=== PATIENT | female | born 1970 | race Caucasian/White ===

== ENCOUNTER 2023-07-08 04:07 | Emergency (ER) | payer MEDICAID ==
[~2023-07-08] VITALS: Ht 167.6 cm; Wt 88.6 kg
[~2023-07-08 04:07] MED LIST: BUPR150T22; LEVO50TA67 PO
[2023-07-08 04:38] VITALS: BP 173/116; PULSE 73; RESP 18; TEMP 98.3; O2SAT 97
[2023-07-08] MEDS ORDERED: POLY119P2 PO (05:12)
[2023-07-08] MEDS ORDERED: LIDO30CR TOP (05:12)
[2023-07-08] MEDS ORDERED: HYDR30CR79 TOP (05:12)
== END 2023-07-08 05:22 | disposition home or self-care (01) ==
LOC: ER 04:08
DX: K64.9 Unspecified hemorrhoids (principal); I10 Essential (primary) hypertension; F31.9 Bipolar disorder, unspecified; Z88.8 Allergy status to other drugs, medicaments and biological substances; Z79.899 Other long term (current) drug therapy; Z90.710 Acquired absence of both cervix and uterus
CPT/HCPCS: 99283

== ENCOUNTER 2024-05-26 04:50 | Emergency (ER) | payer MEDICAID ==
[~2024-05-26] VITALS: Ht 167.6 cm; Wt 81.7 kg
[~2024-05-26 04:50] MED LIST changes: +HYDR30CR79 TOP; +LIDO30CR TOP; +POLY119P2 PO
[2024-05-26 04:52] VITALS: TEMP 97.7
[2024-05-26] MEDS: naproxen 500mg tablet PO ONE (05:52)
[2024-05-26 06:07] VITALS: BP 143/98; PULSE 91; RESP 16; O2SAT 95
== END 2024-05-26 06:19 | disposition home or self-care (01) ==
LOC: ER 04:50
DX: S93.402A Sprain of unspecified ligament of left ankle, initial encounter (principal); S90.32XA Contusion of left foot, initial encounter; I10 Essential (primary) hypertension; F31.9 Bipolar disorder, unspecified; Z90.710 Acquired absence of both cervix and uterus; Z79.899 Other long term (current) drug therapy; W10.9XXA Fall (on) (from) unspecified stairs and steps, initial encounter; Y93.89 Activity, other specified; Y92.89 Other specified places as the place of occurrence of the external cause; Y99.8 Other external cause status
CPT/HCPCS: 73610; 73630; 99284; A6449; L4360

== ENCOUNTER 2024-05-27 02:08 | Emergency (ER) | payer MEDICAID ==
[~2024-05-27] VITALS: Ht 167.6 cm; Wt 85.1 kg
[2024-05-27 02:41] LABS: BASOPHILS % (AUTO) 0.4 % (0-1); EOSINOPHILS # (AUTO) 0.1 X10'3 (0-0.9); EOSINOPHILS % (AUTO) 3.1 % (0-6); HEMATOCRIT 42.6 % (35.0-45.0); HEMOGLOBIN 14.3 g/dl (12.0-16.0); LYMPHOCYTES # (AUTO) 1.2 X10'3 (1.1-4.8); LYMPHOCYTES % (AUTO) 25.4 % (21-51); MEAN CORPUSCULAR HEMOGLOBIN 35.8 PG (27.0-31.0); MEAN CORPUSCULAR HGB CONC 33.5 g/dL (33.0-36.5); MEAN CORPUSCULAR VOLUME 106.6 FL (78-98); MEAN PLATELET VOLUME 7.9 FL (7.4-10.4); MONOCYTES # (AUTO) 0.5 X10'3 (0-0.9); MONOCYTES % (AUTO) 10.4 % (2-12); NEUTROPHILS # (AUTO) 2.8 X10'3 (1.8-7.7); NEUTROPHILS % (AUTO) 60.7 % (42-75); PLATELET COUNT 214 X10'3 (140-440); RED CELL DISTRIBUTION WIDTH 13.9 % (11.5-14.5); WHITE BLOOD COUNT 4.6 X10'3 (4.5-11.0)
[2024-05-27 02:56] LABS: ALANINE AMINOTRANSFERASE 128 U/L (12-78); ALBUMIN 3.9 G/DL (3.4-5.0); ALBUMIN/GLOBULIN RATIO 1.2 (1.1-1.5); ALKALINE PHOSPHATASE 65 IU/L (46-116); ANION GAP 14 (8-16); ASPARTATE AMINO TRANSFERASE 124 U/L (10-37); BILIRUBIN,TOTAL 0.8 MG/DL (0.1-1.0); BLOOD UREA NITROGEN 21 MG/DL (7-18); CALCIUM 9.5 MG/DL (8.5-10.1); CHLORIDE 101 MMOL/L (99-107); CREATININE 0.84 MG/DL (0.40-0.90); GLUCOSE 95 MG/DL (70-104); POTASSIUM 3.8 MMOL/L (3.5-5.1); SODIUM 138 MMOL/L (135-145); TOTAL CARBON DIOXIDE 23.4 MMOL/L (24-32); TOTAL PROTEIN 7.2 G/DL (6.4-8.2); eCRCL 73 ML/MIN; eGFR 71 ML/MIN
[2024-05-27 03:07] LABS: ETHANOL 15 MG/DL (<10); PRO BRAIN NATRIURETIC PEPTIDE 158 PG/ML (0-125)
[2024-05-27] MEDS ORDERED: iohexol 350MG/ML 100ml bottle IV ONE (06:04)
[2024-05-27] MEDS: meclizine 12.5mg tablet PO ONE (06:40)
[2024-05-27] MEDS: ketorolac trometh 15mg/ml vial 15 MG/ML ML IV ONE (07:52)
[2024-05-27 13:32] LABS: URINE AMPHETAMINE SCREEN NEGATIVE (Neg); URINE BARBITUATE SCREEN NEGATIVE (Neg); URINE BENZODIAZEPINES SCREEN NEGATIVE (Neg); URINE CANNABINOID SCREEN POSITIVE (Neg); URINE COCAINE SCREEN NEGATIVE (Neg); URINE METHADONE SCREEN NEGATIVE (Neg); URINE OPIATE SCREEN NEGATIVE (Neg); URINE PHENCYCLIDINE SCREEN NEGATIVE (Neg)
[2024-05-27] MEDS: LORazepam 2 mg/ml vial IV ONE (15:19)
[2024-05-27 15:59] VITALS: TEMP 98.3
[2024-05-27] MEDS: acetaminophen 325mg tablet PO ONE (17:03)
[2024-05-27 18:14] VITALS: BP 138/89; PULSE 92; RESP 15; O2SAT 97
== END 2024-05-27 18:12 | disposition home or self-care (01) ==
LOC: ER 02:09
DX: R42 Dizziness and giddiness (principal); I10 Essential (primary) hypertension; G89.29 Other chronic pain; M54.9 Dorsalgia, unspecified; F31.9 Bipolar disorder, unspecified; E07.9 Disorder of thyroid, unspecified; Z90.710 Acquired absence of both cervix and uterus; Z98.890 Other specified postprocedural states; Z79.899 Other long term (current) drug therapy
CPT/HCPCS: 36415; 70450; 70496; 70498; 70551; 71045; 80053; 80305; 80320; 83880; 84484; 85025; 93005; 96374; 96375; 99285; J1885; J2060; J8597; Q9967

== ENCOUNTER 2025-03-19 07:09 | Emergency (ER) | payer MEDICAID ==
[~2025-03-19] VITALS: Ht 167.6 cm; Wt 82.0 kg
--- NOTE | 2025-03-19 07:47 | Physician Documentation ---
History of Present Illness ~ Chief Complaint: Neck pain Stated Complaint: FALL/NECK PAIN Time Seen by MD: 07:42 Primary Medical Doctor: Ирина Wilkins [facility] This is a very pleasant 54-year-old female who presents for evaluation of lower neck pain after she tripped over her dog and fell several days ago. Pain is worse with range of motion. Palliated with the position of comfort. She attempted to treat it with the meloxicam and Tylenol without success. This never happened in the past. She reports that it is difficult to drive. She gets occasional pins and needle sensation in her left upper extremity. Denies loss of consciousness. Denies head strike. No headache. No focal neurologic deficits when inquired in plain Micronesian. Denies any other symptoms. No concern for tobacco, alcohol or illicit substances use. Medication Reconciliation Allergies: Coded Allergies: No Known Drug Allergies (Verified Allergy, Unknown, 05/27/24) Uncoded Allergies: "OPIATES I AM ADDICTED" (Adverse Reaction, Intermediate, 03/19/12) Scheduled Bupropion HCl (Bupropion Xl), 150 MG DAILY, (Reported) Hydrocortisone (Anusol-Hc), 1 APPLIC TOP Q8H Levothyroxine Sodium* (Levoxyl*), 50 MCG PO DAILY, (Reported) Levothyroxine Sodium* (Levoxyl*), 50 MCG PO DAILY Lidocaine/Prilocaine (Lidocaine-Prilocaine Cream), 1 APPLIC TOP UD Polyethylene Glycol 3350 (Miralax), 17 GM PO DAILY Past Medical History Past Medical History: Hypertension, Hepatitis C, Thyroid (unspecified), Chronic Back Pain, Bipolar Past Surgical History: hysterectomy, orthopedic surgeries Alcohol Use: None Drug Use: none Lives with: Spouse Lives In: Home Review of Systems ROS 10 point review of systems was performed and unless noted above in HPI is negative for acute process/complaint. Physical Exam Vital Signs: Temperature: 97.5, Source: Temporal, Heart Rate: 105, Respiratory Rate: 18, BP: 159/124, Pulse Oximetry: 97, Weight: 81.950 Physical Exam GENERAL: Awake, alert, oriented, GCS 15, no apparent distress, non-toxic appearing, answers questions, follows commands appropriately. HEENT: Atraumatic, normocephalic, pupils equal, extraocular muscles intact, sclerae anicteric, mucus membranes moist, oropharynx is clear, no stridor. NECK: supple, range of motion is limited by pain, trachea midline, no thyromegaly, no lymphadenopathy, no JVD. CARDIOVASCULAR: regular rate/rhythm, no murmurs/gallops/rubs, Pulses are 2+ in all extremities and symmetric. Capillary refill less than 2 seconds. PULMONARY: Nonlabored, good air movement ,no respiratory distress, speaking in full sentences, clear to auscultation bilaterally, no wheezing, no ronchi, no rales, no accessory muscle use. GASTROINTESTINAL: Soft, non-tender, non-distended, normal active bowel sounds, no organomegaly, no pulsatile masses, no CVA tenderness. NEUROLOGIC: Lucid with normal mental status. Normal facial symmetry. Moves all extremities symmetrically and with purpose. No truncal ataxia. Speech is fluid without evidence of dysarthria or aphasia, no focal deficits appreciated. MUSCULOSKELETAL: There is full range of motion of all extremities. There is no joint pain or joint swelling or joint erythema. There is no muscle pain or tenderness or swelling. EXTREMITIES: warm, well-perfused, no cyanosis, no clubbing, no edema, no acute deformities. Skin: warm, dry, no rashes or lesions, no jaundice, no petechiae orpurpura. No ecchymosis. PSYCHIATRIC: Normal affect, normal insight, normal concentration. Focused exam: [] Midline tenderness to palpation over C5 through C7. No step- offs. No crepitus. No bruising. Progress Results/Orders Results/Orders Orders - MICHELLE CHACON DO Ct Cervical Spine (03/19/25 08:05) Completed Orders - MICHELLE CHACON DO Ct Cervical Spine (03/19/25 08:05) Tramadol Tablet (Ultram Tablet) (03/19/25 07:45) Medications Received in ER Medications (Trade) Dose Ordered Sig/Tony Route PRN Reason Start Time Stop Time Status Last Admin Dose Admin (Ultram tablet) 50 mg ONCE ONCE PO 03/19/25 07:45 03/19/25 07:46 DC 03/19/25 07:48 50 MG Vital Signs 03/19/25 03/19/25 03/19/25 03/19/25 07:10 07:48 07:53 08:10 Temp 97.5 Pulse 105 94 Resp 18 18 18 18 B/P (MAP) 159/124 171/118 (135) Pulse Ox 97 96 O2 Flow Rate 0 Medical Decision Making Findings Facility Status: ED Holds, RME process The plan was discussed with the patient, who demonstrates clear understanding of the plan and is in agreement with the plan unless otherwise noted in the chart. All questions have been answered, all concerns were addressed unless otherwise documented. I was available throughout their ED stay for frequent reassessment and questions. Differential Diagnoses (considered and possible or likely): [Muscle spasm, torticollis, somewhat less likely cervical spine fracture or subluxation, radiculopathy] ??Differential Diagnoses (considered and unlikely, not requiring evaluation currently): [No evidence of traumatic cord injury at this time] MDM Data Please see [facility] for the following: Independent Historians and external Records Review. Historian: [Patient] Independent Historians: ?[Record review] Medication Management: [Reviewed medication list] Social History and determinants: [Reviewed] Please see the body of the note for the following: Any independent interpretations of ECG, imaging studies. All vitals signs/haemodynamics, ordered tests were independently reviewed and interpreted by myself. Nursing triage complaint and vitals reviewed, additional nursing notes were reviewed as available and I agree unless otherwise noted or documented in contradiction in the chart Vital Signs: Independently reviewed Labs: Independently interpreted Imaging: Independently interpreted Old Medical Records: Independently reviewed, see [facility] for relevant summary and information Additionally notably showing: [Hemodynamically stable. CT shows no fracture or subluxation, multilevel DJD.] Tests considered but not ordered include: [Hematologic workup has been considered but does not appear to be necessary given mechanical nature of the injury. MRI can be done on an outpatient basis] Social Determinants of Health Impact: Patient was evaluated in [facility], or [facility] [place] with limited access to healthcare due to below par ratio of patient to medical providers. [] Comorbid Conditions Impacting Present Evaluation and Care/Treatment: [None reported by the patient] Management Discussions with other Healthcare Providers: [None] Treatment and Disposition Medication Management (Given or considered): [Pain management]. See EMR for details Consideration for Hospitalization/Escalation/Deescalation of Care: Admission for observation has been considered, [however the patient is able to tolerate p.o., their symptoms are controlled, they are able to rely on oral medications, and their chief complaint/diagnosis can be managed on outpatient basis.] ?ED Course:?[Pain improved] ?Shared decision making:?[Patient is hemodynamically stable for discharge home with follow with their primary care provider. [ ] Specific and cautious return precautions provided and discussed with full understanding. Any incidental find ings were also discussed and follow up recommendations given. [] All questions answered. Patient/family were able to verbalize back return precautions. Patient/family agree to plan. Copies of imaging and laboratory studies were provided.] Code status:?FULL Please see the full Electronic Medical Record for full details of nursing documentation, medications list, other records of complete past medical history and conditions, vital signs, laboratory studies, and any radiologic study interpretations by radiologists. Portions of this note were completed using [employer] dictation software and as a result there may exist minor errors in sp elling. I have reviewed elements of past family and social history and agree as included in note. Departure Disposition: HOME / SELF CARE / HOMELESS Impression: Primary Impression: Neck pain Condition: Improved Discharge Instructions: Cervical Radiculopathy, Cervical Sprain Additional Instructions: Please follow-up with your primary care provider. You will need MRI given the evidence of degenerative disc disease. Referrals: NO PRIMARY CARE PROVIDER (PCP) Prescriptions Diclofenac Sodium (Voltaren Arthritis Pain) 1 % Gel..gram. 2 GM TOP BID PRN for pain for 10 Days, #100 GM Prov: MICHELLE CHACON DO 03/19/25 Lidocaine (Lidoderm) 5 % Adh..patch 1 PATCH TOP DAILY PRN for pain for 30 Days, #30 PATCH 0 Refills may wear up to 12 hours Prov: MICHELLE CHACON DO 03/19/25 Cyclobenzaprine HCl (Cyclobenzaprine HCl) 5 Mg Tablet 1 TAB PO TID PRN PRN for muscle spasms for 10 Days, #30 TAB 0 Refills Prov: MICHELLE CHACON DO 03/19/25 Naproxen (Naproxen) 500 Mg Tablet 1 TAB PO Q12H, #20 TAB Prov: MICHELLE CHACNO DO 03/19/25 Education Educated: Patient Educated regarding: diagnosis, treatment, prognosis, need for follow up Signature Scribe Signature: No scribe Attestation: This note accurately reflects clinical decisions, work performed by myself, DO INES Hartley NICHOLAS M DO Mar 19, 2025 07:47
[2025-03-19 08:10] VITALS: BP 171/118; PULSE 94; RESP 18; O2SAT 96
--- NOTE | 2025-03-19 08:30 | RADIOLOGY REPORT ---
EXAM: CT CT CERVICAL SPINE INDICATION: fall, lower neck pain EXAM DATE: 03/19/2025 07:59 AM COMPARISON: None TECHNIQUE: Multiple axial CT images of the cervical spine were obtained using bone algorithm. Sagitta l and coronal reformatting was done. Bone and soft tissue windows were reviewed. Radiation Dose Information: CT Dose: CTDI volume is 20.9 mGy. Dose-length product is 452.0 mGy*cm FINDINGS: The cervical alignment is intact. Reversal of the cervical lordosis. There are degenerative changes a t the craniocervical junction, with mild degenerative subluxation. Degenerative changes with osteoph ytes and narrowing at C1-C2. No acute cervical spine fracture is identified. The vertebral body heigh ts are intact. No suspicious osseous lesions are identified. There is an interbody prosthesis at C3-C4. Multilevel intervertebral disc space narrowing most pronou nced at C6-C7. Mild spinal stenosis at C6-C7 due to posterior osteophytes/disc osteophyte complex. Mi ld bilateral neural foraminal stenosis at C6-C7. Multilevel facet arthropathy. There is no prevertebral soft tissue swelling. Lung apices are clear. IMPRESSION: 1. No evidence of acute cervical spine fracture or traumatic malalignment. 2. Multilevel degenerative changes. All CT scans at this medical facility are performed using dose modulation techniques as appropriate t o a performed exam including the following: Automated exposure control was utilized; adjustment of th e MA and/or KV according to patient size; and use of iterative reconstruction technique.
[2025-03-19] MEDS ORDERED: NAPR-56 PO (09:05)
[2025-03-19] MEDS ORDERED: LIDO-52 TOP (09:05)
[2025-03-19] MEDS ORDERED: DICL20GE TOP (09:05)
[2025-03-19] MEDS ORDERED: CYCL-920 PO (09:05)
[2025-03-19 09:36] VITALS: TEMP 97.5
== END 2025-03-19 09:37 | disposition home or self-care (01) ==
LOC: ER 07:09
DX: M54.2 Cervicalgia (principal); I10 Essential (primary) hypertension; F31.9 Bipolar disorder, unspecified; Z90.710 Acquired absence of both cervix and uterus; Z79.899 Other long term (current) drug therapy
CPT/HCPCS: 72125; 99284

== ENCOUNTER 2025-05-20 05:03 | Emergency (ER) | payer MEDICAID ==
[~2025-05-20] VITALS: Ht 167.6 cm; Wt 81.0 kg
[~2025-05-20 05:03] MED LIST changes: +CYCL-920 PO; +DICL20GE TOP; +LIDO-52 TOP
--- NOTE | 2025-05-20 05:23 | Physician Documentation ---
History of Present Illness ~ Chief Complaint: Foot pain Stated Complaint: RIGHT FOOT SWELLING Time Seen by MD: 05:22 Primary Medical Doctor: Ирина Wilkins [facility] Patient presents to the emergency room for evaluation of right great toe pain of sudden onset yesterday. No traumas or falls. No prior instances no fevers. Tetanus witin 5 years: Yes Medication Reconciliation Allergies: Coded Allergies: No Known Drug Allergies (Verified Allergy, Unknown, 05/27/24) Uncoded Allergies: "OPIATES I AM ADDICTED" (Adverse Reaction, Intermediate, 03/19/12) Scheduled Bupropion HCl (Bupropion Xl), 150 MG DAILY, (Reported) Hydrocortisone (Anusol-Hc), 1 APPLIC TOP Q8H Levothyroxine Sodium* (Levoxyl*), 50 MCG PO DAILY, (Reported) Levothyroxine Sodium* (Levoxyl*), 50 MCG PO DAILY Lidocaine/Prilocaine (Lidocaine-Prilocaine Cream), 1 APPLIC TOP UD Polyethylene Glycol 3350 (Miralax), 17 GM PO DAILY Scheduled PRN Cyclobenzaprine HCl (Cyclobenzaprine HCl), 1 TAB PO TID PRN PRN for muscle spasms Diclofenac Sodium (Voltaren Arthritis Pain), 2 GM TOP BID PRN for pain Lidocaine (Lidoderm), 1 PATCH TOP DAILY PRN for pain Past Medical History Past Medical History: Hypertension, Hepatitis C, Thyroid (unspecified), Chronic Back Pain, Bipolar Past Surgical History: hysterectomy, orthopedic surgeries Alcohol Use: None Drug Use: none Lives with: Spouse Lives In: Home Review of Systems ROS All review of systems negative except as per [facility] Physical Exam Vital Signs: Temperature: 98.0, Heart Rate: 115, Respiratory Rate: 16, BP: 175/117, Pulse Oximetry: 98, Weight: 81.000 Physical Exam General: Patient is awake, alert, oriented x4 in no acute distress Head: Normocephalic and atraumatic. Eyes: Conjunctival normal. EOMI. PERRL. ENT: Mucous membranes moist. Neck: Supple, trachea is midline. Chest: Clear to auscultation bilaterally without rales, rhonchi, or wheezes. There is no accessory muscle use or retractions. Cardiac: RRR without murmurs, gallops, or rubs. Abd: Soft, nondistended, nontender, with normoactive bowel sounds. No guarding, rebound, or rigidity. Extremities: Right great toe inflamed and very sensitive to light touch Progress Results/Orders Results/Orders Vital Signs 05/20/25 05:17 Temp 98.0 Pulse 115 Resp 16 B/P (MAP) 175/117 Pulse Ox 98 Medical Decision Making Findings Patient presents to the emergency room with a red hot joint of her right great toe. She endorses that even a bed sheet over it hurts. Differentials include but are not limited to cellulitis, gout, fracture, foreign body. Given history and physical exam symptoms are consistent with classic gout. Treatment initiated. I do not feel patient requires imaging and although considered I do not feel patient is suffering from cellulitis. Departure Disposition: HOME / SELF CARE / HOMELESS Impression: Primary Impression: Gout attack Condition: Stable Discharge Instructions: Gout Referrals: NO PRIMARY CARE PROVIDER (PCP) Prescriptions Tramadol HCl (Tramadol HCl) 50 Mg Tablet 1 TAB PO Q6H PRN PRN for pain, #10 TAB Prov: YE LOJA MD 05/20/25 Colchicine (Colcrys) 0.6 Mg Tablet 1 TAB PO Q6H for gout pain, #6 TAB 0 Refills Prov: YE LOJA MD 05/20/25 Prednisone* (Prednisone*) 20 Mg Tablet 1 TAB PO DAILY for 5 Days, #5 TAB Prov: YE LOJA MD 05/20/25 Education Educated: Patient Educated regarding: diagnosis, treatment, need for follow up Signature Scribe Signature: No scribe Attestation: The note accurately reflects work and decisions made by me.Ye Loja MD 05/20/25 05:39 YE LOJA MD May 20, 2025 05:23
[2025-05-20] MEDS ORDERED: PRED20TA PO (05:39)
[2025-05-20] MEDS ORDERED: TRAM50TA2 PO (05:39)
[2025-05-20] MEDS ORDERED: COL0.6T PO (05:39)
[2025-05-20] MEDS: triamcinolone acetonide 40mg/ml inj IM ONE (05:46)
[2025-05-20] MEDS: ketorolac trometh 15mg/ml vial 15 MG/ML ML IM ONE (05:46)
[2025-05-20 05:57] VITALS: BP 164/120; PULSE 124; RESP 20; TEMP 98; O2SAT 98
== END 2025-05-20 06:04 | disposition home or self-care (01) ==
LOC: ER 05:04
DX: M10.9 Gout, unspecified (principal); I10 Essential (primary) hypertension; F31.9 Bipolar disorder, unspecified; G89.29 Other chronic pain; Z90.710 Acquired absence of both cervix and uterus; Z79.899 Other long term (current) drug therapy
CPT/HCPCS: 96372; 99284; J1885; J3301

== ENCOUNTER 2025-05-24 03:53 | Emergency (ER) | payer MEDICAID ==
[~2025-05-24 03:53] MED LIST changes: +COL0.6T PO; +PRED20TA PO; +TRAM50TA2 PO
[2025-05-24 03:59] VITALS: BP 184/112; PULSE 99; RESP 20; TEMP 97; O2SAT 97
[2025-05-24] MEDS: sulfamethoxazole/trimethoprim DS (800/160mg) tablet PO ONE (04:10)
[2025-05-24] MEDS ORDERED: SULF1TAB49 PO (04:11)
--- NOTE | 2025-05-24 04:11 | Physician Documentation ---
History of Present Illness General Chief Complaint: Edema Stated Complaint: INFECTED WOUND Time Seen by MD: 04:07 Primary Medical Doctor: [facility] Mode of Arrival: POV History of Present Illness Initial Comments This is a 54-year-old female who recently received an intramuscular injection in her left buttock presents for evaluation of redness, pain, burning sensation in the buttock that has been present for several days. No palliating or aggravat ing factors. This never happened in the past. She has a known history of diabetes, but it it is very well-controlled. Denies any fever or chills. Denies any other symptoms. Medication Reconciliation Allergies: Coded Allergies: No Known Drug Allergies (Verified Allergy, Unknown, 05/27/24) Uncoded Allergies: "OPIATES I AM ADDICTED" (Adverse Reaction, Intermediate, 03/19/12) Scheduled Bupropion HCl (Bupropion Xl), 150 MG DAILY, (Reported) Colchicine (Colcrys), 1 TAB PO Q6H Hydrocortisone (Anusol-Hc), 1 APPLIC TOP Q8H Levothyroxine Sodium* (Levoxyl*), 50 MCG PO DAILY, (Reported) Levothyroxine Sodium* (Levoxyl*), 50 MCG PO DAILY Lidocaine/Prilocaine (Lidocaine-Prilocaine Cream), 1 APPLIC TOP UD Polyethylene Glycol 3350 (Miralax), 17 GM PO DAILY Prednisone* (Prednisone*), 1 TAB PO DAILY Scheduled PRN Cyclobenzaprine HCl (Cyclobenzaprine HCl), 1 TAB PO TID PRN PRN for muscle spasms Diclofenac Sodium (Voltaren Arthritis Pain), 2 GM TOP BID PRN for pain Lidocaine (Lidoderm), 1 PATCH TOP DAILY PRN for pain Tramadol HCl (Tramadol HCl), 1 TAB PO Q6H PRN PRN for pain Past Medical History Past Medical History: Hypertension, Hepatitis C, Thyroid (unspecified), Chronic Back Pain, Bipolar Past Surgical History: hysterectomy, orthopedic surgeries Smoking: Non-Smoker Alcohol Use: None Drug Use: none Lives with: Spouse Lives In: Home Review of Systems ROS 10 point review of systems was performed and unless noted above in HPI is negative for acute process/complaint. Physical Exam Physical Exam Vital Signs: Temperature: 97.0, Heart Rate: 99, Respiratory Rate: 20, BP: 184/112, Pulse Oximetry: 97 Oxygen Flow Rate: 0 Physical Exam Physical examination: GENERAL: Awake, alert, oriented, GCS 15, no apparent distress, non-toxic appearing, answers questions, follows commands appropriately. HEENT: Atraumatic, normocephalic, pupils equal, extraocular muscles intact Active gross movements, sclerae anicteric, mucus membranes moist, no stridor. NECK: Midline, no JVD CARDIOVASCULAR: Good skin perfusion without evidence of pallor, mottling. PULMONARY: Nonlabored, symmetric chest rise, no audible wheezing, no accessory muscle use, no respiratory distress, speaking in full sentences. GASTROINTESTINAL: Not distended. NEUROLOGIC: Lucid with normal mental status. Normal facial symmetry. Moves all extremities symmetrically and with purpose. No truncal ataxia. Speech is fluid without evidence of dysarthria or aphasia, no focal deficits appreciated. EXTREMITIES: Acute deformities Skin: warm, dry PSYCHIATRIC: Normal affect, normal insight, normal concentration. Focused exam: There is a proximally 20 cm area of erythema, calor, with a smaller central area of induration without fluctuance on her left buttock. It is tender to palpation reproducing chief complaint. No crepitus. No violaceous changes. Progress Results/Orders Results/Orders Orders - MICHELLE CHACON DO Sulfamethox/Trimetho. Ds Tab (Septra Ds (05/24/25 04:10) Vital Signs 05/24/25 03:59 Temp 97.0 Pulse 99 Resp 20 B/P (MAP) 184/112 Pulse Ox 97 O2 Flow Rate 0 Medical Decision Making Findings Facility Status: ED Holds, [facility] process The plan was discussed with the patient, who demonstrates clear understanding of the plan and is in agreement with the plan unless otherwise noted in the chart. All questions have been answered, all concerns were addressed unless otherwise documented. I was available throughout their ED stay for frequent reassessment and questions. Differential Diagnoses (considered and possible or likely): [Iatrogenic cellulitis of left buttock, less likely abscess, less likely necrotizing infection.] ??Differential Diagnoses (considered and unlikely, not requiring evaluation currently): [See above] MDM Data Please see HPI for the following: Independent Historians and external Records Review. Historian: [Patient] Independent Historians: ?[Record review] Medication Management: [Reviewed medication list] Social History and determinants: [Reviewed] Please see the body of the note for the following: Any independent interpretations of ECG, imaging studies. All vitals signs/haemodynamics, ordered tests were independently reviewed and interpreted by myself. Nursing triage complaint and vitals reviewed, additional nursing notes were reviewed as available and I agree unless otherwise noted or documented in contradiction in the chart Vital Signs: Independently reviewed Labs: Independently interpreted Imaging: Independently interpreted Old Medical Records: Independently reviewed, see HPI for relevant summary and information Pulse Oximetry: [97%] interpreted as [normal on room air] by me Additionally notably showing: [Hemodynamically stable] Tests considered but not ordered include: [Hematologic workup and imaging has been considered but does not appear to be necessary given clinical nature of diagnosis] Social Determinants of Health Impact: Patient was evaluated in [facility], [facility] [place] community with limited access to healthcare due to below par ratio of patient to medical providers. [] Comorbid Conditions Impacting Present Evaluation and Care/Treatment: [Diabetes] Management Discussions with other Healthcare Providers: [None] Treatment and Disposition Medication Management (Given or considered): [Initial antibiotics]. See EMR for details Consideration for Hospitalization/Escalation/Deescalation of Care: Admission for observation has been considered, [however the patient is able to tolerate p.o., their symptoms are controlled, they are able to rely on oral medications, and their chief complaint/diagnosis can be managed on outpatient basis.] ?ED Course:?[No clinical deterioration] ?Shared decision making:?[Patient is hemodynamically stable for discharge home with follow with their primary care provider. [ ] Specific and cautious return precautions provided and discussed with full understanding. Any incidental findings were also discussed and follow up recommendations given. [] All questions answered. Patient/family were able to verbalize back return precautions. Patient/family agree to plan. Copies of imaging and laboratory studies were provided.] Code status:?FULL Please see the full Electronic Medical Record for full details of nursing documentation, medications list, other records of complete past medical history and conditions, vital signs, laboratory studies, and any radiologic study interpretations by radiologists. Portions of this note were completed using [employer] dictation software and as a result there may exist minor errors in spelling. I have reviewed elements of past family and social history and agree as included in note. Departure Disposition: HOME / SELF CARE / HOMELESS Impression: Primary Impression: Cellulitis of left buttock Condition: Stable Discharge Instructions: Cellulitis, Adult Additional Instructions: Return to emergency department if his symptoms do not improve with the next two days, return if they get worse. Referrals: NO PRIMARY CARE PROVIDER (PCP) Prescriptions Sulfamethoxazole/Trimethoprim (Bactrim Ds Tablet) 800 Mg-160 Mg Tablet 1 TAB PO Q12H for 10 Days, #20 TAB Prov: MICHELLE CHACON DO 05/24/25 Education Educated: Patient Educated regarding: diagnosis, treatment, prognosis, need for follow up Signature Scribe Signature: No scribe Attestation: Date: May 24, 2025 Time: 04:11 This note accurately reflects clinical decisions, work performed by myself, DO INES Hartley NICHOLAS M DO May 24, 2025 04:11
== END 2025-05-24 05:14 | disposition home or self-care (01) ==
LOC: ER 03:53
DX: L03.317 Cellulitis of buttock (principal); E11.9 Type 2 diabetes mellitus without complications; I10 Essential (primary) hypertension; F31.9 Bipolar disorder, unspecified; G89.29 Other chronic pain; Z90.710 Acquired absence of both cervix and uterus; Z86.19 Personal history of other infectious and parasitic diseases; Z79.899 Other long term (current) drug therapy
CPT/HCPCS: 99283

== ENCOUNTER 2025-06-07 08:37 | Inpatient (IN) | payer MEDICAID ==
[~2025-06-07] VITALS: Ht 167.6 cm; Wt 78.2 kg
[~2025-06-07 08:37] MED LIST changes: -PRED20TA PO
--- NOTE | 2025-06-07 09:08 | Physician Documentation ---
History of Present Illness ~ Chief Complaint: Hip pain Stated Complaint: INFECTION Time Seen by MD: 08:57 Primary Medical Doctor: [facility] Valeriano MARTINEZ This is a 54-year-old female who presents to the emergency department for persisting and worsening pain to the left buttock. She reports that she was seen here in this emergency department on 05/20/2025 for gout attack. Review of that note shows that she received Kenalog 80 mg IM and Toradol 30 mg IM at that visit. Kenalog was in left buttock. She then returned on 05/24/2025 and was found to have cellulitis to the left buttock. She was placed on a 10 day course of Bactrim at that time-finished four days ago. She reports that the pain is significant. She reports that she feels unwell. She was found to be tachycardic on initial vitals. Medication Reconciliation Allergies: Coded Allergies: No Known Drug Allergies (Verified Allergy, Unknown, 05/27/24) Uncoded Allergies: "OPIATES I AM ADDICTED" (Adverse Reaction, Intermediate, 03/19/12) Scheduled Bupropion HCl (Bupropion Xl), 150 MG DAILY, (Reported) Colchicine (Colcrys), 1 TAB PO Q6H Hydrocortisone (Anusol-Hc), 1 APPLIC TOP Q8H Levothyroxine Sodium* (Levoxyl*), 50 MCG PO DAILY, (Reported) Levothyroxine Sodium* (Levoxyl*), 50 MCG PO DAILY Lidocaine/Prilocaine (Lidocaine-Prilocaine Cream), 1 APPLIC TOP UD Polyethylene Glycol 3350 (Miralax), 17 GM PO DAILY Scheduled PRN Cyclobenzaprine HCl (Cyclobenzaprine HCl), 1 TAB PO TID PRN PRN for muscle spasms Diclofenac Sodium (Voltaren Arthritis Pain), 2 GM TOP BID PRN for pain Lidocaine (Lidoderm), 1 PATCH TOP DAILY PRN for pain Tramadol HCl (Tramadol HCl), 1 TAB PO Q6H PRN PRN for pain Discontinued Medications Sulfamethoxazole/Trimethoprim (Bactrim Ds Tablet), 1 TAB PO Q12H Discontinued Reason: Auto Discontinued Past Medical History Past Medical History: Hypertension, Hepatitis C, Thyroid (unspecified), Chronic Back Pain, Bipolar Past Surgical History: hysterectomy, orthopedic surgeries Alcohol Use: None Drug Use: none Lives with: Spouse Lives In: Home Review of Systems ROS As stated above in the HPI, otherwise all systems are reviewed and negative. Physical Exam Vital Signs: Temperature: 98.3, Source: Oral, Heart Rate: 133, Respiratory Rate: 20, BP: 140/113, Pulse Oximetry: 97, Weight: 78.200 Physical Exam General: Alert, appears uncomfortable. Neck: Full range of motion. Respiratory: Lungs clear, no respiratory distress. Chest: No accessory muscle use. Cardiovascular: Regular rate and rhythm, no murmurs. Tachycardic. Gastrointestinal: Soft, nontender, nondistended. Bowels sounds present. Extremities: Normal range of motion, no deformity. Neurologic: Oriented x4. Psychiatric: Normal mood and affect. Skin: Normal color, warm and dry. No edema, no ecchymosis. Large fluctuant exquisitely tender area to left buttock. Progress Progress Note 0910: Consultation with BLAINE Call who affirms plan of care to pursue septic workup and contrasted CT pelvis. Results/Orders Results/Orders Orders - BAILEY NEVES DIRECTOR [employer] Urinalysis, Cult If Indicated (06/07/25 08:54) Culture Blood (06/07/25 08:54) * Iv Access / Saline Lock * (06/07/25 09:09) Ct Pelvis (06/07/25 10:20) Drug Screen, Urine (06/07/25 09:12) Hcg, Ur Ql (06/07/25 09:12) Normal Saline 1000ml (0.9% Sodium Chlori (06/07/25 10:25) Piperacillin/Tazo 4.5gm/100ml (Zosyn 4.5 (06/07/25 10:45) Page Hospitalist (06/07/25 10:44) Lactic,2hr (06/07/25 10:53) Completed Orders - BAILEY NEVES DIRECTOR [employer] Cbc/Diff (06/07/25 08:54) Procalcitonin (06/07/25 08:54) BMP (06/07/25 08:54) Lacticsepsis (06/07/25 08:54) Ct Pelvis (06/07/25 10:20) Ketorolac Trometh 15mg/Ml Vial (Toradol (06/07/25 09:10) Acetaminophen 1,000mg/100ml Iv (Ofirmev (06/07/25 14:00) Normal Saline 1000ml (0.9% Sodium Chlori (06/07/25 09:15) Acetaminophen 1,000mg/100ml Iv (Ofirmev (06/07/25 09:45) Iohexol 300mg/Ml 100ml Inj. (Omnipaque-3 (06/07/25 10:05) Potassium Cl Sr Tablet (K-Dur Tablet) (06/07/25 10:25) Vancomycin*Pharmacy To Dose* (Vancomycin (06/07/25 10:45) Morphine 4mg/Ml Inj. (Morphine Inj.) (06/07/25 10:55) Medications Received in ER Medications (Trade) Dose Ordered Sig/Tony Route PRN Reason Start Time Stop Time Status Last Admin Dose Admin (Toradol injection) 15 mg ONCE ONCE IV 06/07/25 09:10 06/07/25 09:12 DC 06/07/25 10:33 15 MG Sodium Chloride 1,000 ml @ 1,000 mls/hr ONCE ONCE IV 06/07/25 09:15 06/07/25 10:14 DC 06/07/25 10:33 1,000 MLS/HR Acetaminophen 100 ml @ 400 mls/hr Q6H ONCE IV 06/07/25 09:45 06/07/25 09:59 DC 06/07/25 10:34 400 MLS/HR (K-DUR tablet) 20 meq ONCE ONCE PO 06/07/25 10:25 06/07/25 10:26 DC 06/07/25 10:34 20 MEQ Vital Signs 06/07/25 06/07/25 06/07/25 06/07/25 08:49 09:55 10:03 11:03 Temp 98.3 Pulse 133 128 102 Resp 20 18 18 14 B/P (MAP) 140/113 118/91 (100) 150/99 (116) Pulse Ox 97 99 0 Laboratory Tests Test 06/07/25 09:20 White Blood Count 10.8 Red Blood Count 4.69 Hemoglobin 16.5 H Hematocrit 48.4 H Mean Corpuscular Volume 103.2 H Mean Corpuscular Hemoglobin 35.2 H Mean Corpuscular Hemoglobin Concent 34.2 Red Cell Distribution Width 14.8 H Platelet Count 379 Mean Platelet Volume 7.6 Neutrophils (%) (Auto) 71.7 Lymphocytes (%) (Auto) 19.2 L Monocytes (%) (Auto) 7.5 Eosinophils (%) (Auto) 1.3 Basophils (%) (Auto) 0.3 Neutrophils # (Auto) 7.8 H Lymphocytes # (Auto) 2.1 Monocytes # (Auto) 0.8 Eosinophils # (Auto) 0.1 Basophils # (Auto) 0.0 CBC Comment Sodium Level 138 Potassium Level 3.1 L Chloride Level 95 L Carbon Dioxide Level 30.6 Anion Gap 12 Blood Urea Nitrogen 12 Creatinine 0.92 H Estimated GFR/1.73 m2 64 BUN/Creatinine Ratio 13.0 Glucose Level 112 H Lactic Acid Level 3.6 H Calcium Level 9.1 Albumin 3.8 Procalcitonin < 0.05 Chemistry Comments EKG/XRAY/CT/US/VASC/MRI CT : [facility] [address] [place] [address] CAT SCAN Patient: BLACK GRIMALDO Medical Record: [id number] [facility] : 1970, Age: 54 Sex: Female Location: ER Patient Status: REG ER Service Date/Time: 06/07/251019 Ordering Physician: BAILEY NEVES DIRECTOR [employer] Exam: CT PELVIS History: Myositis left buttock after IM injection Comparison Study: None Technique: Multidetector spiral CT of the pelvis was performed from iliac crests to pubic symphysis. 100 cc of intravenous contrast was administered during this examination. Portal venous imaging was obtained. Axial, coronal and sagittal multiplanar reformats were performed by the technologist on a separate workstation. Radiation Dose : CT Dose: CTDI volume is 22 mGy. Dose-length product is 801 mGy*cm Findings: Subcutaneous edema is present in the left gluteal region with soft tissue stranding. No well-defined abscess is present at the injection site. No destructive lesions of bone. Urinary bladder is smooth walled. No abnormal masses or fluid collections in the true pelvis IMPRESSION: 1. No discrete abscess seen at the injection site. There is subcutaneous edema present at this time. Electronically Signed by:RUBEN CIFUENTES MD Date & Time: 06/07/251034 Dictated by: RUBEN CIFUENTES MD Dictation date and time: 06/07/251034 Primary Care Provider: NO PRIMARY CARE PROVIDER cc: BAILEY NEVES DIRECTOR [employer] ~ Medical Decision Making Additional Comment Most Likely Diagnoses 1. Injection-site bacterial abscess: The development of a fluctuant, painful mass at the site of a recent intramuscular injection, especially following cellulitis and inadequate response to oral antibiotics, strongly suggests a localized abscess. Abscess formation is a well-recognized complication of intramuscular injections, particularly with corticosteroids, and is supported by clinical findings of fluctuance and systemic symptoms.[1-2] 2. Worsening cellulitis: Cellulitis may progress despite initial antibiotic therapy, especially if the chosen agent does not cover streptococci, which are common pathogens. The Infectious Diseases Society of [place] notes that cellulitis can advance to systemic toxicity and abscess formation, particularly when initial management is suboptimal.[1][3] 3. Sterile (crystal) abscess or granulomatous reaction to triamcinolone: Corticosteroid injections can cause sterile abscesses or granulomatous inflammation, presenting as a subacute, fluctuant mass. These reactions are less likely to cause systemic toxicity but should be considered, especially with triamcinolone.[4-5] 4. Gluteal hematoma with secondary infection: Intramuscular injections may cause hematoma formation, which can become secondarily infected, leading to abscess and systemic symptoms.[2] 5. Fat necrosis / panniculitis: Injection of corticosteroids can trigger panniculitis or fat necrosis, presenting as a painful, indurated mass, but typically without severe systemic symptoms.[6] 6. Septic ischial bursitis: Infection of the ischiogluteal bursa can present as a painful, fluctuant mass in the buttock, though it is less common.[7] 7. Injection-related foreign-body reaction: Granulomatous or inflammatory response to injected material may mimic abscess or cellulitis.[5] Most Important Not to Miss Diagnoses 1. Necrotizing soft-tissue infection (necrotizing fasciitis / myonecrosis): Rapid progression, severe pain out of proportion to findings, systemic toxicity (tachycardia, malaise), and failure to respond to antibiotics are red flags. The Infectious Diseases Society of [place] emphasizes the need for urgent surgical evaluation and imaging to rule out necrotizing fasciitis in such cases.[1][3] 2. Pyomyositis with evolving sepsis: Deep muscle infection may present with localized pain, swelling, and systemic toxicity. [id number] ultrasound or MRI can help distinguish pyomyositis from superficial abscess.[8] 3. Sepsis / bacteremia secondary to soft-tissue infection: Systemic symptoms (tachycardia, malaise) in the context of a soft-tissue infection warrant evaluation for sepsis, as described in the [place] Journal of Medicine.[9] labs remarkable for elevated lactic acid, mildly reduced potassium at 3.1. No abscess on CT scan. KCL replaced with 20 meq po. NS given x 2 liters. IV Vancomycin and Zosyn initiated. Patient will need admission, hospitalist consulted and agrees to admit patient. Departure Time of Disposition: 10:53 Disposition: 09 ADMITTED INPATIENT Admitted to Inpatient Unit: yes, to hospitalist Impression: Primary Impression: Cellulitis of left buttock Additional Impression: Lactic acid acidosis Referrals: NO PRIMARY CARE PROVIDER (PCP) Signature Scribe Signature: x Attestation: The note accurately reflects work and decisions made by me.Bailey Valdes NP 06/07/25 09:05 BAILEY NEVES NP Jun 07, 2025 09:08
[2025-06-07 09:39] LABS: MEAN PLATELET VOLUME 7.6 FL (7.4-10.4); RED CELL DISTRIBUTION WIDTH 14.8 % (11.5-14.5)
[2025-06-07 09:44] LABS: CREATININE 0.92 MG/DL (0.40-0.90); TOTAL CARBON DIOXIDE 30.6 MMOL/L (24-32); eCRCL 66 ML/MIN; eGFR 64 ML/MIN
[2025-06-07] MEDS ORDERED: iohexol 300mg/ml 100ml inj. ONE (10:05)
[2025-06-07] MEDS: normal saline 1000ml 1,000 ML IV ONE ×2 (10:33→11:22)
[2025-06-07] MEDS: ketorolac trometh 15mg/ml vial 15 MG/ML ML IV ONE ×2 (10:33→11:20)
[2025-06-07] MEDS: potassium Cl 20 mEq SR tablet PO ONE (10:34)
[2025-06-07] MEDS: acetaminophen 1,000mg/100ml IV 100 ML IV ONE (10:34)
--- NOTE | 2025-06-07 10:37 | RADIOLOGY REPORT ---
History: Myositis left buttock after IM injection Comparison Study: None Technique: Multidetector spiral CT of the pelvis was performed from iliac crests to pubic symphysis. 100 cc of intravenous contrast was administered during this examination. Portal venous imaging was obtained. Axial, coronal and sagittal multiplanar reformats were performed by the technologist on a separate workstation. Radiation Dose : CT Dose: CTDI volume is 22 mGy. Dose-length product is 801 mGy*cm Findings: Subcutaneous edema is present in the left gluteal region with soft tissue stranding. No well-defined abscess is present at the injection site. No destructive lesions of bone. Urinary bladder is smooth walled. No abnormal masses or fluid collections in the true pelvis IMPRESSION: 1. No discrete abscess seen at the injection site. There is subcutaneous edema present at this time.
[2025-06-07] MEDS ORDERED: magnesium hydroxide 30ml (MOM) UD suspension PO PRN ×2 (10:55→12:15)
[2025-06-07] MEDS ORDERED: HYDROcodone/acetaminophen 5mg/325mg tablet PO PRN ×2 (10:55→12:15)
[2025-06-07] MEDS ORDERED: mag hydrox/Alum hydrox/simeth 30ml oral suspension PO PRN ×2 (10:55→12:15)
[2025-06-07] MEDS ORDERED: magnesium sulf-water 4G/100mL 100 ML IV PRN ×2 (10:55→12:15)
[2025-06-07] MEDS ORDERED: potassium Cl 20 mEq SR tablet PO PRN ×4 (10:55→12:15)
[2025-06-07] MEDS ORDERED: potassium Cl 40MEQ/1/2NS 520ml 520 ML IV PRN ×2 (10:55→12:15)
[2025-06-07] MEDS ORDERED: ondansetron/PF 4mg/2ml inj IV PRN ×2 (10:55→12:15)
[2025-06-07] MEDS ORDERED: magnesium Cl slow-release 64mg tablet PO PRN ×2 (10:55→12:15)
[2025-06-07] MEDS ORDERED: magnesium sulf-water 2g/50mL 50 ML IV PRN ×2 (10:55→12:15)
[2025-06-07] MEDS: piperacillin/tazo 4.5gm/100ml 100 ML IV ONE (11:18)
[2025-06-07] MEDS: morphine 4 MG/ML inj SYRINge IV ONE (11:53)
[2025-06-07] MEDS: ondansetron/PF 4mg/2ml inj IV ONE (12:02)
[2025-06-07] MEDS ORDERED: morphine 4 MG/ML inj SYRINge IV PRN (12:15)
[2025-06-07] MEDS ORDERED: HYDROcodone/acetaminophen 10/325mg tab PO PRN (12:15)
--- NOTE | 2025-06-07 13:19 | HISTORY AND PHYSICAL-Residence ---
History & Physical Providers to CC Resident Creating Document: NIKKIE LANDEROS RES ~ History of Present Illness Primary Medical Doctor: [facility] Reason for Admit\\Complaint: Cellulitis History of Present Illness This is a 54-year-old female presented to the emergency department for persisting and worsening pain in the left buttock. She reports that she was here in this ED on 05/20/2025 for a gout attack. Patient reports that she received IM injections in the left gluteal region at that visit. She started to develop pain and swelling in the left gluteal region 2 days after. She then returned back on 05/24/2025 to the ED and was found to have cellulitis to the left buttock region. She was placed on a 10 day course of Bactrim which she says she completed taking the course about 3-4 days ago. The patient reports that there was no improvement in her pain once she completed the course of the antibiotic and so she came back again to the ED for further evaluation. Currently She reports that the pain is significant, rates it 7/10 in intensity, radiating down her left leg and back. Pain aggravates with movement, and relieved by rest. Patient also reports of having chills, sweats during the past few days. She denies any complaints of fever, palpitations, chest pain. Allergies: Coded Allergies: No Known Drug Allergies (Verified Allergy, Unknown, 05/27/24) Uncoded Allergies: "OPIATES I AM ADDICTED" (Adverse Reaction, Intermediate, 03/19/12) Home Medications Home Medications Active Tramadol HCl 50 Mg Tablet 1 Tab PO Q6H PRN PRN Colcrys (Colchicine) 0.6 Mg Tablet 1 Tab PO Q6H Voltaren Arthritis Pain (Diclofenac Sodium) 1 % Gel..gram. 2 Gm TOP BID PRN 10 Days Lidoderm (Lidocaine) 5 % Adh..patch 1 Patch TOP DAILY PRN 30 Days may wear up to 12 hours Cyclobenzaprine HCl 5 Mg Tablet 1 Tab PO TID PRN PRN 10 Days Miralax (Polyethylene Glycol 3350) 17 Gram/Dose Powder 17 Gm PO DAILY dissolve in water Lidocaine-Prilocaine Cream (Lidocaine/Prilocaine) 2.5 %-2.5 % Cream..g. 1 Applic TOP UD Anusol-Hc (Hydrocortisone) 2.5 % Cream..g. 1 Applic TOP Q8H 10 Days Levoxyl* (Levothyroxine Sodium) 50 Mcg Tablet 50 Mcg PO DAILY Reported Bupropion Xl (Bupropion HCl) 150 Mg Tab.sr.24h 150 Mg DAILY Levoxyl* (Levothyroxine Sodium) 50 Mcg Tablet 50 Mcg PO DAILY Past Medical History Past Medical History Hypertension, diabetes, hypothyroidism Past Surgical History Surgical History Comment Hysterectomy Orthopedic surgeries. Past Social History Social History Comment Patient smokes on and off half to 1 pack per day since the last 30 years. Drinks alcohol most days of the week, mostly vodka shots Does not use any illicit drugs Works in the [employer] Lives at home with her mom and grandson Patient independent with all activities of daily living Smoking: Non-Smoker Alcohol Use: None Drug Use: None Lives with: Spouse Lives In: Home ROS ROS Constitutional: Reports: No headache, No chills, fever, malaise Eyes: Reports: No redness, tearing, patient reports having blurry vision ENT: Reports: no symptoms reported Respiratory: Reports: No symptoms reported Cardiovascular: Reports: Reports no chest pain Gastrointestinal: Reports: Reports no nausea , vomiting Genitourinary: Reports: No symptoms reported Female Genitalia: Reports: No symptoms reported Neurological: Reports: No symptoms reported Musculoskeletal: Reports: no symptoms reported Integumentary: Reports: no symptoms reported Allergic/Immunologic: Reports: no symptoms reported Hematologic/Lymphatic: Reports: no symptoms reported Psychiatric: Reports: no symptoms reported Exam Vitals: Vital Signs Date Time Temp Pulse Resp B/P (MAP) Pulse Ox O2 Delivery O2 Flow Rate FiO2 06/07/25 11:03 102 14 150/99 (116) 0 06/07/25 08:49 98.3 General: General: Awake and Alert, no acute distress. HEENT: Conjunctiva pink, Sclera clear, Mucus Membranes moist. Neck: Supple without masses and tenderness. Resp: Unlabored. Lungs clear to auscultation bilaterally. Heart: Regular Rate and rhythm, normal S1 and S2 without murmur, rub or gallop. Abdomen: Soft and non tender no organomegaly Extremities: Peripheral pulses well felt. Skin: Warm and Dry. Skin over the left gluteal region feels warm and shows a circular area of tenderness and induration. No blisters, bullae, necrosis or crepitus present. Diagnostic Data Last Recorded Lab Results: 06/07/25 0920 06/07/25 1105 Advance Care Planning Advanced Care plannin - 30 Minutes (Full code) Additional Plan Cellulitis of the left gluteal region Failed outpatient treatment Patient does not meet criteria for SIRS Temp- 98.3, HR- 133, RR-20, WBC-10.8 Initial lactic acid was 3.6, came down to 1.[address] pelvis-No discrete abscess seen at the injection site. There is subcutaneous edema present at this time. As patient failed outpatient treatment with Bactrim, currently patient is being given vancomycin, and ceftriaxone 1 g IV daily. Patient currently on IV fluids NS 100cc/hr. May need MRI to rule out osteomyelitis. Follow-up with blood cultures. Mild hypokalemia K-3.1 Patient on potassium replacement Continue to monitor the labs. Hypothyroidism- Follow-up with TSH. Continue taking levothyroxine 50 mcg Opiate and cannabinoid use disorder- U tox positive for opiates and cannabinoids patient services specialist consulted. Code Status: Full code DVT prophylaxis: Heparin Analgesia/sedation: Morphine Line/tube: PIV GI prophylaxis: None Nutrition: Heart healthy Prognosis: Guarded Becki Lanza PGY-1 Date of Service: Jun 07, 2025 Billing Provider: CRISTY PERRY MD Common Visit Codes: 44247-JUMASUU INP/OBS CARE (HIGH) Secondary Visit Codes: 72722-PHISHYAE CARE PLAN 30 MINUTES NIKKIE LANDEROS, RES Jun 07, 2025 13:19 CRISTY PERRY MD Jun 09, 2025 08:02
[2025-06-07 13:38] LABS: LEUKOCYTE ESTERASE ,URINE NEGATIVE (Neg); NITRITES, URINE NEGATIVE (Neg); OCCULT BLOOD,URINE NEGATIVE (Neg)
[2025-06-07 13:39] LABS: UA COLLECTION TYPE CLN CATCH MIDSTREAM; URINE HCG NEGATIVE (NEG)
[2025-06-07] MEDS: vancomycin/NS 1 GM ADD-VANTAGE 250 ML IV SCH (13:41)
[2025-06-07 14:00] LABS: URINE AMPHETAMINE SCREEN NEGATIVE (Neg); URINE BARBITUATE SCREEN NEGATIVE (Neg); URINE BENZODIAZEPINES SCREEN NEGATIVE (Neg); URINE CANNABINOID SCREEN POSITIVE (Neg); URINE COCAINE SCREEN NEGATIVE (Neg); URINE METHADONE SCREEN NEGATIVE (Neg); URINE OPIATE SCREEN POSITIVE (Neg); URINE PHENCYCLIDINE SCREEN NEGATIVE (Neg)
[2025-06-07] MEDS ORDERED: acetaminophen 1,000mg/100ml IV 100 ML IV SCH (14:00)
[2025-06-07] MEDS ORDERED: DULA0.75 SQ (15:11)
[2025-06-07] MEDS ORDERED: LISI1TAB51 PO (15:13)
[2025-06-07 15:38] VITALS: BP 126/86; PULSE 96; RESP 14; TEMP 98.2; O2SAT 96
[2025-06-07] MEDS: morphine 4 MG/ML inj SYRINge IV PRN ×2 (16:07→20:14)
[2025-06-07] MEDS: HYDROcodone/acetaminophen 10/325mg tab PO PRN (18:13)
[2025-06-07 19:00] VITALS: BP 138/87; PULSE 94; RESP 15; TEMP 97.8; O2SAT 97
[2025-06-07] MEDS: docusate sod 100mg capsule PO SCH (19:31)
[2025-06-07] MEDS: heparin, porcine 5000 units/ml vial SQ SCH (19:32)
[2025-06-07] MEDS ORDERED: K and/or MAG REPLACEMENT MC SCH (20:00)
[2025-06-07] MEDS ORDERED: docusate sod 100mg capsule PO SCH (20:00)
[2025-06-07] MEDS: K and/or MAG REPLACEMENT MC SCH (20:00)
[2025-06-07] MEDS: CefTRIAXone/D5W-Rocephin 1gm 50 ML IV SCH (20:13)
[2025-06-08 06:00] VITALS: BP 114/71; PULSE 89; RESP 15; TEMP 97.2; O2SAT 99
[2025-06-08 06:15] LABS: MEAN PLATELET VOLUME 7.7 FL (7.4-10.4); RED CELL DISTRIBUTION WIDTH 14.3 % (11.5-14.5)
[2025-06-08 07:05] LABS: CHOL/HDL RATIO 3.4 (0.00-4.99); CREATININE 0.77 MG/DL (0.40-0.90); LDL CHOLESTEROL 98 MG/DL (50-100); TOTAL CARBON DIOXIDE 28.0 MMOL/L (24-32); eCRCL 79 ML/MIN; eGFR 78 ML/MIN
[2025-06-08 08:00] VITALS: BP_SYST 114; PULSE 85; RESP 18; O2SAT 99
[2025-06-08] MEDS ORDERED: levoTHYROXINE 25mcg tablet PO SCH (08:00)
[2025-06-08] MEDS ORDERED: HYDR-3965 PO (08:43)
--- NOTE | 2025-06-08 14:54 | DISCHARGE SUMMARY-Residence ---
Discharge Summary Providers to Resident Creating Document: KULWINDER DEGROOT RES ~ Discharge Summary Admission Diagnosis: cellulitis Hospital Course DATE OF ADMISSION: 06/07/2025 DATE OF DISCHARGE: 06/08/2025 Discharge Diagnosis\Comment: Myositis in left upper and lateral gluteal region Past history of cellulitis in left upper and lateral gluteal region Gout Hypertension Type 2 diabetes Hypothyroidism Operations\Procedures: None Consultants: None Complications: None Condition on DC: Stable New Medications: Hydrocodone Bit/Acetaminophen 5/325 MG (Blair 5/325 MG) 5 Mg/325 Mg Tablet 1 TAB PO Q6H PRN for pain, #14 TAB Continued Medications: Colchicine (Colcrys) 0.6 Mg Tablet 1 TAB PO Q6H for gout pain, #6 TAB 0 Refills Cyclobenzaprine HCl (Cyclobenzaprine HCl) 5 Mg Tablet 1 TAB PO TID PRN PRN for muscle spasms for 10 Days, #30 TAB 0 Refills Diclofenac Sodium (Voltaren Arthritis Pain) 1 % Gel..gram. 2 GM TOP BID PRN for pain for 10 Days, #100 GM Dulaglutide (Trulicity) 0.75 Mg/0.5 Ml Pen.injctr 0.75 MG SQ Q7D Hydrocortisone (Anusol-Hc) 2.5 % Cream..g. 1 APPLIC TOP Q8H for 10 Days, #30 GM 0 Refills Levothyroxine Sodium* (Levoxyl*) 50 Mcg Tablet 50 MCG PO DAILY Lidocaine (Lidoderm) 5 % Adh..patch 1 PATCH TOP DAILY PRN for pain for 30 Days, #30 PATCH 0 Refills may wear up to 12 hours Lidocaine/Prilocaine (Lidocaine-Prilocaine Cream) 2.5 %-2.5 % Cream..g. 1 APPLIC TOP UD, #30 GM Lisinopril/Hydrochlorothiazide (Lisinopril-Hctz 20-12.5 mg Tab) 20 Mg-12.5 Mg Tablet 1 TAB PO DAILY, TAB 0 Refills Polyethylene Glycol 3350 (Miralax) 17 Gram/Dose Powder 17 GM PO DAILY for constipation, #527 GM 0 Refills dissolve in water Tramadol HCl (Tramadol HCl) 50 Mg Tablet 1 TAB PO Q6H PRN PRN for pain, #10 TAB Discharge Summary: History of present illness: This is a 54-year-old female presented to the emergency department for persisting pain in the left buttock. She reports that she was here in this ED on 05/20/2025 for a gout attack for which she received IM injections in the left gluteal region. She started to develop pain and swel ling in the left gluteal region 2 days after. She then returned back on 05/24/2025 to the ED and was found to have cellulitis in the left buttock region. She was started on a 10 day course of Bactrim which she says she completed taking the course about 3-4 days ago. She important no improvement in her pain which prompted her to come to the ED for further evaluation. Hospital course: On examination there is mild swelling with tenderness in the left lateral and upper gluteal quadrant with no erythema, open wound, or pus. CT scan ruled cellulitis. She was given 1 dose of ceftriaxone 1 g IV in the ER, but antibiotic was discontinued since imaging and blood work did not show active infection. She has residual myositis from her previous infection. She improved significantly and is hemodynamically stable within 24 hours since the time of her admission and hence being discharged with pain management for myositis. Vital Signs Date Time Temp Pulse Resp B/P (MAP) Pulse Ox O2 Delivery O2 Flow Rate FiO2 06/08/25 08:00 18 99 Room Air 0.0 06/08/25 08:00 85 06/08/25 06:00 97.2 114/71 (85) Laboratory Tests Test 06/07/25 09:20 06/07/25 11:05 06/07/25 13:05 06/08/25 04:51 White Blood Count 10.8 X10'3 4.9 X10'3 Red Blood Count 4.69 X10'6 3.88 X10'6 Hemoglobin 16.5 g/dl 13.7 g/dl Hematocrit 48.4 % 40.3 % Mean Corpuscular Volume 103.2 FL 103.9 FL Mean Corpuscular Hemoglobin 35.2 PG 35.2 PG Mean Corpuscular Hemoglobin Concent 34.2 g/dL 33.9 g/dL Red Cell Distribution Width 14.8 % 14.3 % Platelet Count 379 X10'3 254 X10'3 Mean Platelet Volume 7.6 FL 7.7 FL Neutrophils (%) (Auto) 71.7 % 71.2 % Lymphocytes (%) (Auto) 19.2 % 19.7 % Monocytes (%) (Auto) 7.5 % 6.2 % Eosinophils (%) (Auto) 1.3 % 2.0 % Basophils (%) (Auto) 0.3 % 0.9 % Neutrophils # (Auto) 7.8 X10'3 3.5 X10'3 Lymphocytes # (Auto) 2.1 X10'3 1.0 X10'3 Monocytes # (Auto) 0.8 X10'3 0.3 X10'3 Eosinophils # (Auto) 0.1 X10'3 0.1 X10'3 Basophils # (Auto) 0.0 X10'3 0.0 X10'3 CBC Comment Sodium Level 138 MMOL/L 138 MMOL/L Potassium Level 3.1 MMOL/L 4.1 MMOL/L 3.5 MMOL/L Chloride Level 95 MMOL/L 101 MMOL/L Carbon Dioxide Level 30.6 MMOL/L 28.0 MMOL/L Anion Gap 12 9 Blood Urea Nitrogen 12 MG/DL 14 MG/DL Creatinine 0.92 MG/DL 0.77 MG/DL Estimated GFR/1.73 m2 64 ML/MIN 78 ML/MIN BUN/Creatinine Ratio 13.0 18.2 Glucose Level 112 MG/DL 84 MG/DL Hemoglobin A1c 5.9 % Lactic Acid Level 3.6 MMOL/L 1.3 MMOL/L Calcium Level 9.1 MG/DL 8.4 MG/DL Albumin 3.8 G/DL 2.8 G/DL Procalcitonin < 0.05 NG/ML Chemistry Comments Magnesium Level 1.9 MG/DL 2.1 MG/DL Urine Specimen Description Cln catch midstream Urine Color Yellow Urine Clarity Clear Urine pH 8.0 Urine Specific [place] 1.010 Urine Protein Negative mg/dl Urine Glucose (UA) Negative mg/dl Urine Ketones Trace mg/dl Urine Occult Blood Negative Urine Nitrite Negative Urine Bilirubin Negative Urine Urobilinogen 1.0 E.U/dL Urine Leukocyte Esterase Negative Urine Culture Indicated Not ind Volume Urine Centrifuged 10 ml Urine HCG, Qualitative Negative Urine Comment Urine Opiates Screen Positive Urine Methadone Screen Negative Urine Fentanyl Screen Negative Urine Barbiturates Screen Negative Urine Phencyclidine Screen Negative Urine Amphetamines Screen Negative Urine Benzodiazepines Screen Negative Urine Cocaine Screen Negative Urine Cannabinoids Screen Positive Drug Screen Comment Total Bilirubin 0.6 MG/DL Aspartate Amino Transf (AST/SGOT) 33 U/L Alanine Aminotransferase (ALT/SGPT) 64 U/L Alkaline Phosphatase 57 IU/L Total Protein 6.0 G/DL Globulin 3.2 G/DL Albumin/Globulin Ratio 0.9 Triglycerides Level 154 MG/DL Cholesterol Level 192 MG/DL LDL Cholesterol 98 MG/DL HDL Cholesterol 57 MG/DL Cholesterol/HDL Ratio 3.4 Thyroid Stimulating Hormone (TSH) 7.22 ulU/ml Imaging: Pelvis CT: No discrete abscess seen at the injection site. There is subcutaneous edema present at this time. Physical exam on discharge: General: Well alert, well oriented, not confused, not agitated, not in acute distress, well cooperated during the physical. HEENT: Conjunctive are pink, sclerae clear, no icterus, pupil is equal in both sides, reactive to light, no ear discharge, no pharyngeal erythema or an edema. Neck: Supple, no JVD, no lymphadenopathy and thyromegaly. Chest: Equal air entry on both lungs, no added sounds, no wheeze. Cardiovascular: S1-S2 regular sinus rhythm and, regular rate, no gallops, no rubs, no murmurs Abdomen: No visible peristalsis, Bowel sounds present on auscultation, soft, nontender, no guarding, no rigidity Extremities: Small swelling, approximately 4x5 cm, no surrounding erythema, discharge, no open wounds present in left upper and lateral gluteal region . No swelling of the limbs, no bilateral edema, all peripheral pulses felt. Central Nervous System: No focal neurological deficits, no motor or sensory weakness in all 4 extremities, could move all 4 extremities, 2+ deep tendon reflexes, negative Babinski. Musculoskeletal: No joint swelling, deformities, inflammations, and no scoliosis and back tenderness Skin: Warm and dry. Discharge instructions: Take 1 tablet of Blair 5/325 q.6h p.o. p.r.n. for pain Warm compress for localized swelling and pain Continue all other home medication. Follow-up with your primary care in 1-2 weeks Visit ER immediately in case of any acute symptoms including increased swelling, redness, fever with chills, nausea/vomiting. *Problems/Diagnosis: (1) Type 2 diabetes mellitus Status: Chronic (2) Hypertension Status: Chronic (3) Gout Status: Chronic (4) Hypothyroidism Status: Chronic (5) Myositis Status: Acute (6) Cellulitis and abscess of buttock Status: Resolved Total Time Spent on D/C: > 30 Minutes Counseling Services Smoking & Tobacco Cessation: > 10 Minutes Date of Service: Jun 08, 2025 Billing Provider: VALENCIA BARBOUR MD Common Visit Codes: 51535-FEQ/[id number] DISCH DAY >30min KULWINDER DEGROOT, SONI Jun 08, 2025 14:21 CRISTY PERRY MD Jun 09, 2025 08:03
[2025-06-08] MEDS ORDERED: VANCOMYCIN LEVEL IV ONE (22:30)
== END 2025-06-08 09:15 | disposition home or self-care (01) | DRG 351 ==
LOC: ER 08:38 → ED HOLD 10:56 → ORTHO 4S 15:24
PROVIDERS: ADMIT Internal Medicine; ATTEND Internal Medicine
PROC: BW211ZZ Computerized Tomography (CT Scan) of Abdomen and Pelvis using Low Osmolar Contrast (ICD-10-PCS; principal; 2025-06-07)
DX: M60.88 Other myositis, other site (principal); E87.20 Acidosis, unspecified; E11.9 Type 2 diabetes mellitus without complications; E03.9 Hypothyroidism, unspecified; I10 Essential (primary) hypertension; E87.6 Hypokalemia; F11.90 Opioid use, unspecified, uncomplicated; F12.90 Cannabis use, unspecified, uncomplicated; M10.9 Gout, unspecified; G89.29 Other chronic pain; F31.9 Bipolar disorder, unspecified; Z90.710 Acquired absence of both cervix and uterus; Z79.899 Other long term (current) drug therapy
CPT/HCPCS: 36415; 72193; 80048; 80053; 80061; 80305; 81003; 81025; 83036; 83605; 83735; 84132; 84145; 84443; 85025; 87040; 87081; 96365; 96367; 96375; 99285; G0378; J0131; J0696; J1644; J1885; J2270; J2405; J2543; J3373; J7030; J7040; Q9967